=== PATIENT | male | born 1970 | race Caucasian/White ===

== ENCOUNTER 2018-11-14 21:09 | Emergency (ER) | payer OTHER ==
[2018-11-14] MEDS ORDERED: diphenhydrAMINE 25 MG CAP PO ONE (21:47)
[2018-11-14 22:00] LABS: PLATELET COUNT 164 10^3/uL (150-400)
[2018-11-14 22:20] LABS: CREATINE KINASE 54 IU/L (0-224)
--- NOTE | 2018-11-14 22:26 | EDPHY ---
General Time Seen by Provider: 11/14/18 21:20 Narrative: CLINICAL IMPRESSION: Petechial rash to bilateral lower extremities, myalgias ASSESSMENT/PLAN: 48-year-old male presents to the emergency department with complaints of several hours of a petechial rash to bilateral lower extremities associated with 5 days of generalized myalgias, low energy, subjective fever and chills with night sweats. Vital signs stable on arrival aside from hypertension. Patient has petechiae purpura noted to bilateral lower extremities, no significant calf swelling, compartment syndrome, and distal neurovascular exam is intact. Symptoms began in the setting of a recent long bike ride. Labs are reassuring with no evidence of renal insufficiency, hematuria, electrolyte imbalance, or rhabdomyolysis. PT and PTT are normal. Patient was seen and examined by Dr. Bojorquez. Chest x-ray ordered with no evidence of underlying cardiopulmonary abnormality mass or infiltrate. No clinical signs to suggest DIC. No evidence of bacterial upper or lower respiratory disease. Patient was advised to elevate his legs at home, rest, stay well hydrated and have repeat lab work by primary care in 2-3 days. Low threshold for return to ED sooner for worsening symptoms as discussed in person and discharge papers. DIFFERENTIAL DX: DDX includes but not limited to rhabdomyolysis, thrombocytopenia, DIC, autoimmune reaction, coagulopathy, infection, renal insufficiency ED PROCEDURES: See lab and/or imaging results below ED COURSE: 11;00PM discussed with Dr. Bojorquez who also saw and examined patient. Will add CXR, blood cultures, inflammatory markers. CHIEF COMPLAINT: Rash to legs HPI: 48-year-old otherwise healthy male with no reported past medical history presents to the emergency department with a slightly painful, slightly itchy rash that developed on bilateral lower legs within the last several hours. Patient states 6 days ago he went on a 55 mi bike ride and states that he was not well hydrated and "bumped" during the ride. He states that he continued to feel fatigued, run down and tired for the next 3 days. 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 He did have some alcohol on his trip. He states he slept poorly in the hotel room and last night reports that he had "drenching sweats". He thinks he may have had some intermittent fevers. He flew home today. He states on the bus he was checking his legs in noticed a slightly painful and itchy rash. He and his for researching this at home and be came concerned that he may have had shingles and came to the ED. He notes that his calves feel tight and uncomfortable. He has no reported medical history. He has not had any ill exposures. There is no family history of coagulopathy. He takes no regular medications. PAST MEDICAL HISTORY: No significant past medical or surgical history See nurse/triage notes for additional history if applicable Family History: No family history of coagulopathy Social History: Works in an office setting, otherwise healthy, REVIEW OF SYSTEMS: All other systems negative Constitutional: Positive for subjective fever, positive for chills chills, denies appetite change. Eyes: No discharge, vision change ENT: No sore throat, congestion, ear pain. Cardiovascular: No chest pain, no palpitations. Respiratory: No cough, no shortness of breath. Gastrointestinal: No abdominal pain, no vomiting, diarrhea. Genitourinary: No hematuria, dysuria, flank pain, pelvic pain, denies tea- colored urine Musculoskeletal: No back pain, positive for joint swelling, joint pain, positive for myalgias. Skin: Positive for rash Neurological: No headache, dizziness, positive for weakness. PHYSICAL EXAM: General Appearance: Alert, oriented, appropriate, cooperative, NAD, well hydrated, non-toxic appearing, hypertensive, no hypoxia. HEENT: TMs are clear bilaterally no perforation or FB, no injection, no evidence of serous or mucopurulent otitis. Oropharynx clear is no erythema or exudates, no tonsillar hypertrophy or asymmetry. No intraoral petechiae or purpura Dentition without abnormality. Respiratory: There are no retractions, lungs are clear to auscultation. Cardiac: Regular rate and rhythm, no murmurs or gallops. Neurological: [ Alert and oriented x 3 Skin: Petechiae and purpura to bilateral lower legs, no open blisters or wounds. Distal neurovascular exam intact. Compartments soft. No pain to palpation of the calf and no associated erythema or warmth. No rash to the proximal leg. Musculoskeletal: Extremities are symmetrical, full range of motion, no tenderness, deformity, swelling, or erythema. MEDICAL DECISION MAKING: Patient was seen independently. Secondary supervising physician at time of evaluation was Dr Bojorquez . Diagnosis: Petechiae to bilateral lower extremities. New, requires workup Summary: See Assessment and Plan for summary of ED visit Clinical lab tests: ordered / reviewed. Independent visualization of images, tracing, or specimens: Yes. Decision to obtain medical records or history from someone other than the patient: No Review / Summarize previous medical records: None available Discussed patient with another provider: Dr. Bojorquez Patient Progress: Stable for discharge. - Diagnostics Imaging Results: Imaging Impressions Chest X-Ray 11/14/18 23:03 Impression: No acute pulmonary disease. - History Smoking Status: Never smoked - Objective Vital Signs: Initial Vital Signs Temperature (C) 37 C 11/14/18 21:20 Heart Rate 90 11/14/18 21:20 Respiratory Rate 18 11/14/18 21:20 Blood Pressure 170/89 H 11/14/18 21:20 O2 Sat (%) 96 11/14/18 21:20 O2 Delivery Mode Room Air Allergies/Adverse Reactions: No Known Allergies Allergy (Unverified 11/14/18 21:26) Home Medications: Medication Instructions Recorded NK [No Known Home Meds] 11/14/18 Laboratory Results: Laboratory Results 11/14/18 21:44 11/14/18 21:44 11/14/18 11/14/18 11/14/18 22:21 21:44 21:44 WBC RBC Hgb Hct Cancelled MCV MCH MCHC RDW Plt Count MPV Neut % (Auto) Lymph % (Auto) [place] % (Auto) Eos % (Auto) Baso % (Auto) Nucleat RBC Rel Count Absolute Neuts (auto) Absolute Lymphs (auto) Absolute Monos (auto) Absolute Eos (auto) Absolute Basos (auto) Absolute Nucleated RBC Immature Gran % Seg Neutrophils % Band Neutrophils % Lymphocytes % Monocytes % Eosinophils % Basophils % Metamyelocytes % Myelocytes % Promyelocytes % Blast Cells % Immature Gran # Absolute Seg Neuts Absolute Band Neuts Absolute Lymphocytes Absolute Monocytes Absolute Eosinophils Absolute Basophils Absolute Metamyelocyte Absolute Myelocytes Absolute Promyelocytes Absolute Plasma Cells Nucleated RBCs Atypical Lymphocytes Absolute Blast Cells Plasma Cells % Platelet Estimate Tear Drop Cells ESR Cancelled Sodium 135 mEq/L mEq/L (135-145) Potassium 4.0 mEq/L mEq/L (3.5-5.2) Chloride 101 mEq/L mEq/L (97-110) Carbon Dioxide 26 mEq/l mEq/l (22-31) Anion Gap 8 mEq/L mEq/L (6-14) BUN 18 mg/dL mg/dL (7-23) Creatinine 0.8 mg/dL mg/dL (0.7-1.3) Estimated GFR > 60 Glucose 98 mg/dL mg/dL (70-100) Calcium 8.7 mg/dL mg/dL (8.5-10.4) Total Bilirubin 0.5 mg/dL mg/dL (0.1-1.4) AST 59 IU/L IU/L (17-59) ALT 99 IU/L H IU/L (21-72) Alkaline Phosphatase 49 IU/L IU/L (38-126) Creatine Kinase C-Reactive Protein 10.4 mg/L H mg/L (<10.0) Total Protein 6.0 g/dL L g/dL (6.3-8.2) Albumin 3.5 g/dL g/dL (3.5-5.0) Urine Color YELLOW Urine Appearance CLEAR Urine pH 6.0 (5.0-7.5) Ur Specific [place] 1.009 (1.002-1.030) Urine Protein NEGATIVE (NEGATIVE) Urine Ketones NEGATIVE (NEGATIVE) Urine Blood NEGATIVE (NEGATIVE) Urine Nitrate NEGATIVE (NEGATIVE) Urine Bilirubin NEGATIVE (NEGATIVE) Urine Urobilinogen NEGATIVE EU EU (0.2-1.0) Ur Leukocyte Esterase NEGATIVE (NEGATIVE) Urine Glucose NEGATIVE (NEGATIVE) 11/14/18 11/14/18 21:44 21:44 WBC 5.74 10^3/uL 10^3/uL (3.80-9.50) RBC 4.05 10^6/uL L 10^6/uL (4.40-6.38) Hgb 12.9 g/dL L g/dL (13.7-17.5) Hct 36.3 % L % (40.0-51.0) MCV 89.6 fL fL (81.5-99.8) MCH 31.9 pg pg (27.9-34.1) MCHC 35.5 g/dL g/dL (32.4-36.7) RDW 12.0 % % (11.5-15.2) Plt Count 164 10^3/uL 10^3/uL (150-400) MPV 10.3 fL fL (8.7-11.7) Neut % (Auto) Not Reported Lymph % (Auto) Not Reported [place] % (Auto) Not Reported Eos % (Auto) Not Reported Baso % (Auto) Not Reported Nucleat RBC Rel Count Not Reported Absolute Neuts (auto) Not Reported Absolute Lymphs (auto) Not Reported Absolute Monos (auto) Not Reported Absolute Eos (auto) Not Reported Absolute Basos (auto) Not Reported Absolute Nucleated RBC Not Reported Immature Gran % Not Reported Seg Neutrophils % 74.8 % % Band Neutrophils % 0.0 % % Lymphocytes % 18.2 % % Monocytes % 4.0 % % Eosinophils % 2.0 % % Basophils % 1.0 % % Metamyelocytes % 0.0 % % Myelocytes % 0.0 % % Promyelocytes % 0.0 % % Blast Cells % 0.0 % % Immature Gran # Not Reported Absolute Seg Neuts 4.29 10^3/uL 10^3/uL (1.70-6.50) Absolute Band Neuts 0.00 10^3/uL 10^3/uL (0.00-0.70) Absolute Lymphocytes 1.04 10^3/uL 10^3/uL (1.00-3.00) Absolute Monocytes 0.23 10^3/uL L 10^3/uL (0.30-0.80) Absolute Eosinophils 0.11 10^3/uL 10^3/uL (0.03-0.40) Absolute Basophils 0.06 10^3/uL 10^3/uL (0.02-0.10) Absolute Metamyelocyte 0.00 10^3/mL 10^3/mL (0.00-0.00) Absolute Myelocytes 0.00 10^3/mL 10^3/mL (0.00-0.00) Absolute Promyelocytes 0.00 10^3/uL 10^3/uL (0.00-0.00) Absolute Plasma Cells 0.00 10^3/uL 10^3/uL (0.00-0.00) Nucleated RBCs 0 /100 WBC /100 WBC (0-0) Atypical Lymphocytes 1+ H Absolute Blast Cells 0.00 10^3/uL 10^3/uL (0.00-0.00) Plasma Cells % 0.0 % % Platelet Estimate ADEQUATE (ADEQ) Tear Drop Cells 1+ H ESR 4 MM/HR MM/HR (0-15) Sodium 136 mEq/L mEq/L (135-145) Potassium 4.0 mEq/L mEq/L (3.5-5.2) Chloride 102 mEq/L mEq/L (97-110) Carbon Dioxide 27 mEq/l mEq/l (22-31) Anion Gap 7 mEq/L mEq/L (6-14) BUN 18 mg/dL mg/dL (7-23) Creatinine 0.8 mg/dL mg/dL (0.7-1.3) Estimated GFR > 60 Glucose 98 mg/dL mg/dL (70-100) Calcium 8.5 mg/dL mg/dL (8.5-10.4) Total Bilirubin AST ALT Alkaline Phosphatase Creatine Kinase 54 IU/L IU/L (0-224) C-Reactive Protein Total Protein Albumin Urine Color Urine Appearance Urine pH Ur Specific [place] Urine Protein Urine Ketones Urine Blood Urine Nitrate Urine Bilirubin Urine Urobilinogen Ur Leukocyte Esterase Urine Glucose Medications Given: Discontinued Medications Diphenhydramine HCl (Benadryl) 50 mg PO EDNOW ONE Stop: 11/14/18 21:48 Last Admin: 11/14/18 21:54 Dose: 50 mg Sodium Chloride (Ns) 1,000 mls @ 0 mls/hr IV ONCE ONE PRN Reason: Wide Open Stop: 11/14/18 23:05 Last Admin: 11/14/18 23:29 Dose: 1,000 mls Departure - Departure Disposition: Home, Routine, Self-Care Clinical Impression: Petechial rash Condition: Good Instructions: [place] (ED) Additional Instructions: DISCHARGE INSTRUCTIONS FROM YOUR DOCTOR Thank you for visiting our emergency department today. You were treated by a physician administrative assistant receptionist today and your case was reviewed with our ED Attending physician. Please keep in mind that discharge from the emergency department does not mean that there is nothing wrong - it simply means that we have not identified an emergency condition that requires further evaluation or treatment in the hospital. You should always plan to follow up with primary care for re- evaluation of your condition in the next 2-3 days. If you have been referred to a specialist, please call as soon as possible (today or tomorrow) to schedule your follow up appointment at the appropriate time. DIAGNOSTIC WORKUP IN THE EMERGENCY DEPARTMENT INCLUDED LAB EVALUATION, URINE STUDIES AND CHEST X-RAY. NO EVIDENCE OF BLOOD OR INFECTION IN THE URINE. PLATELET COUNT AND RENAL FUNCTIONS ARE NORMAL. NO EVIDENCE OF RHABDOMYOLYSIS. CHEST X-RAY IS REASSURING. YOU WERE ALSO SEEN AND EXAMINED BY DR BOJORQUEZ, OUR ED ATTENDING. WE DO NOT SEE REASON FOR ADMISSION HOWEVER STRONGLY RECOMMEND THEY FOLLOW UP WITH HER PRIMARY CARE DOCTOR IN 2-3 DAYS TO RECHECK YOUR RASH AND REPEAT URINE AND LAB STUDIES. PLEASE REST, ELEVATE YOUR LEGS, AND STAY WELL -HYDRATED. RETURN TO THE EMERGENCY DEPARTMENT IMMEDIATELY FOR WORSENING OR SPREADING RASH, FLANK PAIN, DARK OR TEA-COLORED URINE, WEAKNESS OR FATIGUE, WORSENING MUSCLE PAIN, OR ANY OTHER CONCERN. People present with illnesses and injuries in different ways, and it is always possible that we have missed something. You may always return for re-evaluation if symptoms worsen or if they are not improving or if you develop new/different symptoms. Again, thank you for choosing our emergency department. We hope that you feel better. Referrals: Paige Hernández PA [Primary Care Provider] - 2-3 days without fail
[2018-11-14] MEDS ORDERED: NS 1,000 ML IV ONE (23:04)
[2018-11-15 00:38] VITALS: BP 151/94
== END 2018-11-15 00:37 | disposition home or self-care (01) ==
DX: R21 Rash and other nonspecific skin eruption (principal); E86.9 Volume depletion, unspecified